=== PATIENT | female | born 1990 | race Caucasian/White ===

== ENCOUNTER → 2017-11-11 | Outpatient (CLI) | payer BC | END | disposition home or self-care (01) | LOC: LABWHC1 14:59 | PROVIDERS: ATTEND Obstetrics & Gynecology | DX: O03.9 Complete or unspecified spontaneous abortion without complication (principal) | CPT/HCPCS: 36415; 84702 ==

== ENCOUNTER 2018-08-28 22:40 | Outpatient (CLI) | payer BC ==
[2018-08-28] MEDS ORDERED: LACTATED RINGERS 1,000 ML IV SCH (23:45)
[2018-08-29] MEDS ORDERED: BUTORPHANOL 1 MG/ML 1 ML VIAL IV STA (01:03)
[2018-08-29 01:30] VITALS: RESP 18
[2018-08-29 03:16] VITALS: TEMP 96.8
[2018-08-29 03:21] VITALS: BP 135/80; PULSE 83
--- NOTE | 2018-08-29 13:37 | P.MSEPDOC ---
Presenting Problems - Arrival Data Date of Arrival on Unit: 08/28/18 Time of Arrival on Unit: 22:40 Mode of Transport: Wheelchair - Complaint OB-Reason for Admission/Chief Complaint: Possible Onset of Labor Comment: contractions every 3-5 min, getting more intense Medical History - Information : 4 Para: 2 Term: 1 : 1 Abortions: Spontaneous or Elective: 1 Number of Living Children: 2 - Gestational Age Gestational Age by MICK (wks/days): 36 Weeks and 0 Days Review of Systems - Review of Systems Constitutional: No problems Breast: No problems ENT: No problems Cardiovascular: No problems Respiratory: No problems Gastrointestinal: No problems Genitourinary: No problems Musculoskeletal: No problems Neurological: No problems Skin: No problems Vital Signs - Temperature Temperature: 96.8 F Temperature Source: Temporal Artery Scan - Pulse Right Brachial Pulse Rate: 83 Pulse Assessment Method: Automatic Cuff - Respirations Respiratory Rate: 18 Oxygen Delivery Method: Room Air - Blood Pressure Right Arm Blood Pressure: 135/80 Blood Pressure Mean: 98 Blood Pressure Source: Automatic Cuff Medical Screen Scoring (Pre) - Cervical Exam Dilation: 1-3 cm = 1 Effacement: More than 50% = 2 Membranes: Intact - Uterine Contractions Frequency: Scheduled / = 6 Duration: > 40 seconds = 2 Intensity: N/A - Maternal Vital Signs Maternal Temperature: N/A Maternal Blood Pressure: N/A Signs of Preeclampsia: N/A Maternal Respirations: N/A - Pain Assessment Pain Scale Used: Numeric (1 - 10) Pain Intensity: 7 Pain Management Goal: 4 Pain Description: *Acute, Cramping, Pressure, Tightness Pain Radiation Location: none Pain Frequency: Intermittent Pain Duration: 2 Pain Duration Units: Hours Pain Behavior: Facial Grimacing, Vocalization Pain Aggravating Factors: Contractions - Maternal Trauma Maternal Trauma: N/A - Assessment Baseline FHR: 140 NST: Reactive Position: N/A Station: N/A - Total Score Total Score (Pre): 11 - Level of Risk Level of Risk: High (10+) Physician Notification (Pre) - Physician Notified Physician Notified Date: 08/28/18 Physician Notified Time: 23:30 Physician/Practitioner Notifed:: Dr. Pritchett Spoke With: Dr. Pritchett New Order Received: Yes - Notification Comment Comment: treat contractions with IVF bolus, recheck cervix, if no change may discharge pt home Medical Screen Scoring (Post) - Cervical Exam Dilation: 1-3 cm = 1 Effacement: Exam Deferred Membranes: Intact - Uterine Contractions Frequency: < 36 weeks = 6 Duration: > 40 seconds = 2 Intensity: N/A - Maternal Vital Signs Maternal Temperature: N/A Maternal Blood Pressure: N/A Signs of Preeclampsia: N/A Maternal Respirations: N/A - Pain Assessment Pain Scale Used: Numeric (1 - 10) Pain Intensity: 6 Pain Management Goal: 4 Pain Description: Cramping, Pressure, Tightness Pain Radiation Location: none Pain Aggravating Factors: Contractions - Maternal Trauma Maternal Trauma: N/A - Assessment Heart Rate - NICHD Category: Category I (Normal) = 0 NST: Reactive Position: N/A Station: N/A - Total Score Total Score (Post): 9 - Post Treatment Level of Risk Post Treatment Level of Risk: Medium (6-9) Physician Notification (Post) - Physician Notified Physician Notified Date: 08/29/18 Physician Notified Time: 03:00 Physician/Practitioner Notified:: Dr. Pritchett Spoke With: Dr. Pritchett New Order Received: Yes - Notification Comment Comment: pt was given IVF, stadol dose x 1 given, cervical exam done x 3 with no change, Disposition - Disposition OB Disposition: Triage, Discharge to home, Written follow up instructions reviewed Discharge Date: 08/29/18 Discharge Time: 03:00 I agree with the RN Medical Screening Exam: Yes Risk & Benefit of care provided described in d/c instruction: Yes Diagnosis: FALSE LABOR BEFORE 37 COMPLETED WEEKS OF GEST, THIRD TRI
== END 2018-08-29 03:00 | disposition home or self-care (01) ==
LOC: FBPOP 22:40
PROVIDERS: ATTEND Obstetrics & Gynecology
DX: O47.03 False labor before 37 completed weeks of gestation, third trimester (principal); Z3A.36 36 weeks gestation of pregnancy
CPT/HCPCS: 59025; 99214; 96361; 96365; 96375; J0595

== ENCOUNTER 2018-09-01 03:00 | Inpatient (IN) | payer BC, OTHER ==
[2018-09-01] MEDS ORDERED: TERBUTALINE 1 MG/ML VIAL SQ PRN (05:43)
[2018-09-01] MEDS ORDERED: OXYTOCIN 10 UNIT/ML 1 ML VIAL IM PRN (05:43)
[2018-09-01] MEDS ORDERED: LIDOCAINE 0.5% (PF) 5 MG/ML (50 ML SDV) SQ PRN (05:43)
[2018-09-01] MEDS ORDERED: CARBOPROST TROMETHAMINE 250 MCG/ML 1 ML AMP IM PRN (05:43)
[2018-09-01] MEDS ORDERED: METHYLERGONOVINE 0.2 MG/ML 1 ML AMP IM PRN (05:43)
[2018-09-01] MEDS ORDERED: BUTORPHANOL 1 MG/ML 1 ML VIAL IV PRN (05:44)
[2018-09-01] MEDS ORDERED: LACTATED RINGERS 1,000 ML IV SCH (05:45)
[2018-09-01] MEDS ORDERED: LACTATED RINGERS 1,000 ML IV ONE (05:50)
[2018-09-01] MEDS ORDERED: CITRIC ACID-SODIUM CITRATE 15 ML CUP PO ONE (05:50)
[2018-09-01] MEDS ORDERED: ceFAZolin IN SWFI 2 GM/20 ML SYRINGE IVP ONE (05:50)
[2018-09-01 05:53] LABS: Basophils % (A) 0 %; Eosinophils # (A) 0.2 k/uL (0-0.7); Eosinophils % (A) 2 %; HCT 35.7 % (34.0-46.0); HGB 11.8 gm/dL (11.4-16.0); Lymphocytes # (A) 2.4 k/uL (1.0-4.8); Lymphocytes % (A) 19 %; MCH 30.5 pg (25.0-35.0); MCV 92.5 fL (80.0-100.0); Mean Platelet Volume 6.7; Monocytes # (A) 0.5 k/uL (0-1.0); Monocytes % (A) 4 %; Neutrophils # (A) 8.9 k/uL (1.3-7.7); Neutrophils % (A) 72 %; Platelet Count 293 k/uL (150-450); RBC 3.87 m/uL (3.80-5.40); WBC 12.3 k/uL (3.8-10.6)
--- NOTE | 2018-09-01 05:59 | P.HPOB ---
History of Present Illness H&P Date: 09/01/18 Chief Complaint: Contractions and previous . This patient is a pleasant 28-year-old 4 para 2 female estimated date of confinement 09/26/2018 estimated gestational age 36-3/7 weeks gestation who is admitted to the hospital with complaints of regular painful contractions. Patient was here early Saturday morning with similar complaints is 1 cm dilated having regular contractions. At that time she was given IV pain medications watch for a prolonged period of time and then sent home. Patient states that she's been anthony ever since and they have much worse this morning. Patient's cervix is 1-2 cm dilated she is having regular contractions. Patient' s had 2 previous section and has requested repeat and also requesting tubal ligation. This time patient's felt to be in active labor and therefore going to proceed with delivery. care is otherwise been uncomplicated. Review of Systems Gastrointestinal: Reports heartburn Genitourinary: Reports Menstruation: Reports amenorrhea Past Medical History Past Medical History: No Reported History Additional Past Medical History / Comment(s): Past obstetrical history: Patient had a 39 week section for failure to progress due to severe preeclampsia. She had a repeat section at 37 weeks second baby. History of Any Multi-Drug Resistant Organisms: None Reported Past Surgical History: Section Past Anesthesia/Blood Transfusion Reactions: No Reported Reaction Smoking Status: Never smoker Medications and Allergies Home Medications Medication Instructions Recorded Confirmed Type Ylm-Urcx-Svlbn Acid 1 tab PO HS 02/01/14 09/01/18 History [-U Capsule (formulary)] Allergies Allergy/AdvReac Type Severity Reaction Status Date / Time clindamycin Allergy Rash/Hives Verified 09/01/18 03:19 Exam Vital Signs Temp Pulse Resp BP Pulse Ox 09/01/18 04:19 16 09/01/18 04:02 96.4 F L 79 16 123/78 100 Intake and Output 08/31/18 08/31/18 09/01/18 14:59 22:59 06:59 Other: Weight 88.451 kg - OBG Physical Exam Abdomen: bowel sounds normal, no diffuse tenderness, no bruit present, no guarding noted, no hepatomegaly, no splenomegaly, no mass Vulva: both: normal Vagina: normal moisture, no discharge Cervix: Cervix is 1-2 cm dilated and -2 station Uterus: enlarged (Fundal height is 37 cm) Results blood work shows she is B+, rubella immune, RPR nonreactive,, HIV is nonreactive, hepatitis B was negative, ultrasounds have been normal, group B strep was negative. Assessment and Plan Assessment: This is a pleasant 28-year-old 4 para 2 female 36-3/7 weeks gestation with previous section 2 in active labor. Plan is repeat section and patient is also requesting permanent sterilization. Patient understands a tubal ligation is considered permanent however there is a failure rate of approximately 5 per thousand procedures done. She understands if she does become she is a 50% chance of a tubal or an ectopic . Patient also understands surgery itself has risks including risks of infection, bleeding, possible injury bowel, bladder, vessels, and/or other organs. All the patient's questions are answered and a written consent is obtained. (1) Previous section Current Visit: No Status: Acute Priority: High Code(s): Z98.89 - OTHER SPECIFIED POSTPROCEDURAL STATES * DO NOT USE * SNOMED Code(s): 321284531 (2) Active labor at term Current Visit: No Status: Acute Priority: High Code(s): WSQ9380 - SNOMED Code(s): 85638015 (3) Family planning Current Visit: Yes Status: Acute Code(s): Z30.09 - ENCOUNTER FOR OTH GENERAL CNSL AND ADVICE ON CONTRACEPTION SNOMED Code(s): 808955109
[2018-09-01 06:20] VITALS: BMI 34.5
[2018-09-01] MEDS: LACTATED RINGERS 1,000 ML IV SCH ×4 (07:03→23:55)
[2018-09-01] MEDS ORDERED: NALBUPHINE 10 MG/ML VIAL (10ML MDV) ONE (07:42)
[2018-09-01] MEDS ORDERED: ONDANSETRON 4 MG/2 ML VIAL ONE (07:42)
[2018-09-01] MEDS ORDERED: MORPHINE SULFATE (PF) 0.3 MG/0.3 ML SYR ONE (07:42)
[2018-09-01] MEDS ORDERED: KETOROLAC 30 MG/ML 1 ML VIAL ONE (07:42)
[2018-09-01] MEDS ORDERED: OXYTOCIN 10 UNIT/ML 1 ML VIAL ONE (07:42)
--- NOTE | 2018-09-01 08:35 | P.OP ---
Date of Procedure: 09/01/18 Preoperative Diagnosis: #1: 36-4/7 week . #2: Active labor. #3: Previous section 2 desires repeat. #4: Multi parity desires permanent sterilization Postoperative Diagnosis: Same Procedure(s) Performed: Repeat low transverse section and bilateral partial salpingectomy Anesthesia: spinal Surgeon: Tim Rolon Corporate Affairs Manager #1: Maureen Shen Estimated Blood Loss (ml): 800 Pathology: other (Placenta and bilateral fallopian tube segments) Condition: stable Disposition: floor Indications for Procedure: Please see dictated H&P for intimate details of this patient's admission. Brief summary this is a pleasant 28-year-old 3 para 2 female 36-4/7 weeks gestation admitted to labor and delivery with persistent painful contractions and cervical change consistent with early labor patient's had 2 previous section desires repeat. Patient's also requesting permanent sterilization. Patient I discussed the surgery and risks including risks of infection, bleeding, possible injury bowel bladder, vessels, and/or other organs. Patient also understands that a tubal ligation is considered permanent. All the patient's questions are answered written consent is obtained. Operative Findings: The vigorous viable female infant Apgars 9 and 10 delivery time is 0804 hrs. Description of Procedure: This patient has a Cardona catheter placed to straight drain. She subsequently taken to the operating room where she sat up and spinal anesthetic is administered without incident. With an adequate level of anesthesia she has abdominal prep and drape. Scalpels and taken Pfannenstiel skin incision is then made. A second scalpel is taken of the fascia and the fascia scored with a knife. Fascial incision extended bilaterally using the Cancino scissors. Fascia is then dissected off the rectus muscles sharply. Rectus muscles are the peritoneum identified and entered sharply. Bladder blade is placed and bladder peritoneum was taken off the lower uterine segment. Scalpels and taken low transverse uterine incision is then made for loss of clear fluid with a blunt hemostat. Uterine incision extended bluntly and the infant's head was guided through the incision with fundal pressure mouth and nares are bulb suctioned there is no evidence of a nuchal cord. We then have deliver the rest this 's body. This is a vigorous viable female infant Apgars are 9 and 10 delivery time is 0804 hrs. after delivery of the the umbilical cord is doubly clamped and cut it appears to be trivascular. The placenta is manually extracted intact. Uterus is externalized uterine incision demarcated with Portillo clamps and then closed using 0 Vicryl running locked fashion 2 layers excellent hemostasis is noted then turned my attention a left fallopian tube and approximately 4 cm from the cornual insertion a small window made to the mesial salpinx. Bovie cautery. 2-0 silk is then used to doubly ligate a 2 cm knuckle the tube which is then excised and handed off to pathology. Cauterization done of the tubal ends similar technique on the right side with similar results. With this done excess fluid is removed from the abdomen and pelvis uterus placed back into the abdomen and both fallopian tubes and the uterine incision are inspected and found to be hemostatic. The parietal peritoneum was then closed using 0 Vicryl running fashion. Rectus muscles reapproximated in 0 Vicryl interrupted fashion. Fascia is then closed using 0 PDS. Fascial incision is intact and hemostatic. Subcutaneous tissues and closed using a 3-0 Vicryl. Skin is and closed using selin. There are no complications. All counts correct 3. Patient and baby are taken to the birthing suite in satisfactory condition.
[2018-09-01] MEDS ORDERED: LANOLIN CREAM 5 GM TUBE TOPICAL PRN (09:15)
[2018-09-01] MEDS ORDERED: OXYTOCIN 20 UNITS/1000 ML NS 1,000 ML IV SCH (09:15)
[2018-09-01] MEDS ORDERED: SIMETHICONE 80 MG CHEWABLE PO PRN (09:15)
[2018-09-01] MEDS ORDERED: diphenhydrAMINE 50 MG/ML 1 ML VIAL IVP PRN (09:15)
[2018-09-01] MEDS ORDERED: ACETAMINOPHEN TAB 325 MG TAB PO PRN (09:15)
[2018-09-01] MEDS ORDERED: IBUPROFEN 600 MG TAB PO PRN (09:15)
[2018-09-01] MEDS ORDERED: ZOLPIDEM 5 MG TAB PO PRN (09:15)
[2018-09-01] MEDS ORDERED: ONDANSETRON 4 MG/2 ML VIAL IVP PRN (09:15)
[2018-09-01] MEDS ORDERED: NALOXONE 0.4 MG/ML 1 ML VIAL IV PRN (09:15)
[2018-09-01] MEDS ORDERED: METOCLOPRAMIDE 5 MG/ML 2 ML VIAL IVP PRN (09:15)
[2018-09-01] MEDS ORDERED: diphenhydrAMINE 25 MG CAP PO PRN (09:15)
--- NOTE | 2018-09-01 11:52 | P.MSEPDOC ---
Presenting Problems - Arrival Data Date of Arrival on Unit: 09/01/18 Time of Arrival on Unit: 06:30 Mode of Transport: Wheelchair - Complaint OB-Reason for Admission/Chief Complaint: Possible Onset of Labor Comment: c/o contractions every 2-4 mins starting around 2100 yesterday evening. Medical History - Information : 2 Para: 2 Term: 1 : 1 Abortions: Spontaneous or Elective: 0 Number of Living Children: 2 - Gestational Age Gestational Age by MICK (wks/days): 35 Weeks and 4 Days Review of Systems - Review of Systems Constitutional: No problems Breast: No problems ENT: No problems Cardiovascular: No problems Respiratory: No problems Gastrointestinal: No problems Genitourinary: No problems Musculoskeletal: No problems Neurological: No problems Skin: No problems Vital Signs - Temperature Temperature: 97.2 F Temperature Source: Axillary - Pulse Left Pulse Rate: 75 Pulse Assessment Method: Automatic Cuff - Respirations Respiratory Rate: 16 Oxygen Delivery Method: Room Air O2 Sat by Pulse Oximetry: 99 - Blood Pressure Right Arm Blood Pressure: 126/78 Blood Pressure Mean: 94 Blood Pressure Source: Automatic Cuff Medical Screen Scoring (Pre) - Cervical Exam Dilation: 1-3 cm = 1 Effacement: Exam Deferred Membranes: Intact - Uterine Contractions Frequency: > 5 minutes apart = 1 Duration: > 40 seconds = 2 Intensity: N/A - Maternal Vital Signs Maternal Temperature: N/A Maternal Blood Pressure: N/A Signs of Preeclampsia: N/A Maternal Respirations: N/A - Pain Assessment Pain Location and Character: Abdomen Pain Scale Used: Numeric (1 - 10) Pain Intensity: 7 Pain Management Goal: 0 Pain Description: *Acute, Tightness Pain Frequency: Intermittent Pain Duration Units: Minutes Pain Behavior: Vocalization Pain Aggravating Factors: Contractions Non-Pharmacological Interventions: Darkened Room, Distraction, Position/ Reposition, Relaxation Technique - Maternal Trauma Maternal Trauma: N/A - Assessment Baseline FHR: 135 Heart Rate - NICHD Category: Category I (Normal) = 0 NST: Reactive Position: N/A Station: N/A - Total Score Total Score (Pre): 4 - Level of Risk Level of Risk: Low (0-5) Physician Notification (Pre) - Physician Notified Physician Notified Date: 09/01/18 Physician Notified Time: 04:02 Physician/Practitioner Notifed:: Dr. Rolon Spoke With: Dr. Rolon New Order Received: Yes - Notification Comment Comment: Orders to start IV, keep Pt NPO, and physician will be in at 0615 to recheck and assess pt. Medical Screen Scoring (Post) - Cervical Exam Dilation: 1-3 cm = 1 Effacement: Exam Deferred Membranes: Intact - Uterine Contractions Frequency: N/A Duration: N/A Intensity: N/A - Maternal Vital Signs Maternal Temperature: N/A Maternal Blood Pressure: N/A Signs of Preeclampsia: N/A Maternal Respirations: N/A - Pain Assessment Pain Location and Character: Abdomen Pain Scale Used: Numeric (1 - 10) Pain Intensity: 7 Pain Management Goal: 0 Pain Description: *Acute, Tightness Pain Frequency: Intermittent Pain Duration Units: Minutes Pain Behavior: Vocalization - Maternal Trauma Maternal Trauma: N/A - Assessment Heart Rate: 135 Heart Rate - NICHD Category: Category I (Normal) = 0 - Total Score Total Score (Post): 1 - Post Treatment Level of Risk Post Treatment Level of Risk: Low (0-5) Physician Notification (Post) - Physician Notified Physician Notified Date: 09/01/18 Physician Notified Time: 05:45 Physician/Practitioner Notified:: Dr. Rolon Spoke With: Dr. Rolon - Notification Comment Comment: Dr. rolon at bedside for vag exam and assessment. Orders for admission at this time. Disposition - Disposition OB Disposition: Admit Discharge Date: 09/01/18 Discharge Time: 05:45 I agree with the RN Medical Screening Exam: Yes Risk & Benefit of care provided described in d/c instruction: Yes Diagnosis: LABOR W DELIVERY, UNSP TRIMESTER, UNSP
[2018-09-01] MEDS: SENNOSIDES-DOCUSATE SODIUM 1 EACH TAB PO SCH ×2 (13:31→23:55)
[2018-09-01] MEDS: KETOROLAC 30 MG/ML 1 ML VIAL IVP PRN ×2 (14:08→22:12)
[2018-09-02] MEDS: LACTATED RINGERS 1,000 ML IV SCH (02:23)
[2018-09-02] MEDS: KETOROLAC 30 MG/ML 1 ML VIAL IVP PRN ×3 (04:16→17:09)
--- NOTE | 2018-09-02 05:50 | P.PN ---
Progress Note - Text Progress Note Date: 09/02/18 28 yo female status post . Post-op day #1. Patient received intrathecal Duramorph. Patient was seen today, sitting up in bed no complaints, pain VAS score 0/10, no headache, no itching, no nausea and vomiting. Assessment and plan: Doing well in general no complications from anesthesia.
--- NOTE | 2018-09-02 06:34 | P.PNOBGPC ---
Subjective - Subjective Patient reports: Reports appetite normal, Reports voiding normally, Reports pain well controlled, Reports ambulating normally : doing well Objective - Vital Signs Latest vital signs: Vital Signs Temp Pulse Pulse Resp BP Pulse Ox 09/02/18 04:00 97.5 F L 73 16 112/62 100 09/02/18 00:00 97.7 F 78 16 124/73 100 09/01/18 19:56 97.7 F 86 16 123/80 100 09/01/18 16:00 97.9 F 78 18 119/67 98 09/01/18 12:01 75 16 125/76 09/01/18 11:57 97.9 F 101 H 18 133/85 98 09/01/18 11:52 97.2 F L 75 16 126/78 99 09/01/18 10:34 97.2 F L 75 16 126/78 99 09/01/18 10:04 80 18 124/73 98 09/01/18 09:34 97.1 F L 75 16 135/71 99 09/01/18 09:19 78 16 126/70 97 09/01/18 09:04 76 16 113/67 97 09/01/18 08:49 82 16 108/56 96 09/01/18 08:34 96.6 F L 79 16 114/58 98 Intake and Output 09/01/18 09/01/18 09/02/18 14:59 22:59 06:59 Intake Total 1200 Output Total 6786 803 3507 Balance -175 -300 -1000 Intake: IV 1200 Output: Urine 440 592 7144 Uretheral (Cardona) 300 Estimated Blood Loss 800 Other: Voiding Method Indwelling Catheter Toilet - Exam Lungs: bilateral: normal Chest: Normal S1, Normal S2 Extremities: Present: normal Abdomen: Present: normal appearance, soft. Absent: distention, tenderness Incision: Present: normal, dry, intact Uterus: Present: normal, firm Assessment and Plan Assessment: Post operative day #1. Patient is resting without complaints. Vital signs are stable she is afebrile. Her incision is intact and dry. Patient's tolerating some solid food and ambulating without difficulty. Patient is urinating without difficulty. Plan today is to continue routine postoperative care. Allow the patient to shower and check a CBC. Most likely will go home tomorrow. (1) Previous section Current Visit: No Status: Acute Priority: High Code(s): Z98.89 - OTHER SPECIFIED POSTPROCEDURAL STATES * DO NOT USE * SNOMED Code(s): 337365545 (2) Active labor at term Current Visit: No Status: Acute Priority: High Code(s): DCH5497 - SNOMED Code(s): 61554714 (3) Family planning Current Visit: Yes Status: Acute Code(s): Z30.09 - ENCOUNTER FOR OTH GENERAL CNSL AND ADVICE ON CONTRACEPTION SNOMED Code(s): 565289545
[2018-09-02 07:21] LABS: Basophils % (A) 0 %; Eosinophils # (A) 0.3 k/uL (0-0.7); Eosinophils % (A) 2 %; HCT 32.6 % (34.0-46.0); HGB 11.1 gm/dL (11.4-16.0); Lymphocytes # (A) 2.1 k/uL (1.0-4.8); Lymphocytes % (A) 14 %; MCH 31.4 pg (25.0-35.0); MCHC 34.1 g/dL (31.0-37.0); MCV 92.1 fL (80.0-100.0); Mean Platelet Volume 6.8; Monocytes # (A) 0.8 k/uL (0-1.0); Monocytes % (A) 5 %; Neutrophils # (A) 11.5 k/uL (1.3-7.7); Neutrophils % (A) 77 %; Platelet Count 266 k/uL (150-450); RBC 3.54 m/uL (3.80-5.40); WBC 14.9 k/uL (3.8-10.6)
[2018-09-02] MEDS: SENNOSIDES-DOCUSATE SODIUM 1 EACH TAB PO SCH ×2 (09:45→20:04)
[2018-09-02] MEDS: HYDROcodone/APAP 5-325MG 1 EACH TAB PO PRN ×2 (15:15→20:03)
[2018-09-02 16:46] VITALS: RESP 16
--- NOTE | 2018-09-03 05:14 | P.PNOBGPC ---
Subjective - Subjective Patient reports: Reports appetite normal, Reports voiding normally, Reports pain well controlled, Reports ambulating normally : doing well Objective - Vital Signs Latest vital signs: Vital Signs Temp Pulse Resp BP 09/02/18 16:00 98.2 F 80 16 119/74 09/02/18 08:00 97.8 F 84 14 117/68 Intake and Output 09/02/18 09/02/18 09/03/18 14:59 22:59 06:59 Output Total 900 Balance -900 Output: Urine 900 - Exam Lungs: bilateral: normal Chest: Normal S1, Normal S2 Extremities: Present: normal Abdomen: Present: normal appearance, soft. Absent: distention, tenderness Incision: Present: normal, dry, intact Uterus: Present: normal, firm - Labs Labs: Abnormal Lab Results - Last 24 Hours (Table) 09/02/18 Range/Units 06:53 WBC 14.9 H (3.8-10.6) k/uL RBC 3.54 L (3.80-5.40) m/uL Hgb 11.1 L (11.4-16.0) gm/dL Hct 32.6 L (34.0-46.0) % Neutrophils # 11.5 H (1.3-7.7) k/uL Assessment and Plan Assessment: Post operative day #2. Patient is resting without complaints. She wishes to go home. Vital signs are stable she's afebrile. Uterus is firm nontender she' s having normal lochia. CBC yesterday was normal. Patient is tolerating regular diet, ambulating, urinating without difficulty. Plan today is to continue routine postoperative care discharge home later today. (1) Previous section Current Visit: No Status: Acute Priority: High Code(s): Z98.89 - OTHER SPECIFIED POSTPROCEDURAL STATES * DO NOT USE * SNOMED Code(s): 445927258 (2) Active labor at term Current Visit: No Status: Acute Priority: High Code(s): SCY9179 - SNOMED Code(s): 49255052 (3) Family planning Current Visit: Yes Status: Acute Code(s): Z30.09 - ENCOUNTER FOR OTH GENERAL CNSL AND ADVICE ON CONTRACEPTION SNOMED Code(s): 562611248
--- NOTE | 2018-09-03 05:24 | P.DS ---
Providers Date of admission: 09/01/18 05:44 Expected date of discharge: 09/03/18 Attending physician: Tim Rolon Primary care physician: Tim Rolon - Discharge Diagnosis(es) (1) Previous section Current Visit: No Status: Acute Priority: High (2) Active labor at term Current Visit: No Status: Acute Priority: High (3) Family planning Current Visit: Yes Status: Acute Hospital Course: Please see dictated H&P of this patient's admission. Brief summary this is a 28 -year-old 3 para 2 female 36 1/2 weeks gestation who is admitted to labor and delivery in active labor. Patient's had previous section therefore had repeat section and also requested tubal ligation. Postoperative patient did well and on postoperative 2 she felt be stable for discharge home follow up with me in 1 week. Procedures: Repeat low transverse section and bilateral partial salpingectomy Patient Condition at Discharge: Good Plan - Discharge Summary New Discharge Prescriptions: No Action Vbn-Jqmc-Qlngv Acid [-U Capsule (formulary)] 1 tab PO HS Discharge Medication List Qgm-Jupo-Peuwr Acid [-U Capsule (formulary)] 1 tab PO HS [History]
[2018-09-03] MEDS: SENNOSIDES-DOCUSATE SODIUM 1 EACH TAB PO SCH (10:01)
[2018-09-03] MEDS: HYDROcodone/APAP 5-325MG 1 EACH TAB PO PRN ×2 (10:01→10:05)
[2018-09-03 11:12] VITALS: BP 120/67; PULSE 95; TEMP 98.4
== END 2018-09-03 10:43 | disposition home or self-care (01) | DRG 785 ==
LOC: FBPOP 03:00 → 4FBP 05:44
PROVIDERS: ADMIT Obstetrics & Gynecology; ATTEND Obstetrics & Gynecology
PROC: 0UB70ZZ Excision of Bilateral Fallopian Tubes, Open Approach (ICD-10-PCS; 2018-09-01)
PROC: 10D00Z1 Extraction of Products of Conception, Low, Open Approach (ICD-10-PCS; principal; 2018-09-01 08:00)
DX: O34.211 Maternal care for low transverse scar from previous cesarean delivery (principal); O99.62 Diseases of the digestive system complicating childbirth; R12 Heartburn; Z30.2 Encounter for sterilization; Z37.0 Single live birth; Z3A.36 36 weeks gestation of pregnancy; Z88.1 Allergy status to other antibiotic agents
CPT/HCPCS: 59025; 85025; 86850; 86900; 86901; 88302; 88307; 88312; 96360; 99213

== ENCOUNTER 2018-09-12 18:28 | Inpatient (IN) | payer OTHER ==
[2018-09-12] MEDS ORDERED: LABETALOL SYRINGE 5 MG/ML IVP STA (19:11)
[2018-09-12] MEDS ORDERED: LACTATED RINGERS 1,000 ML IV ONE (19:12)
[2018-09-12] MEDS ORDERED: MAGNESIUM SULFATE-D5W PMX 1 GM in DEXTROSE/WATER 1 100ML.BAG IVPB SCH (19:15)
[2018-09-12] MEDS ORDERED: SODIUM CHLORIDE 0.9% 500 ML 500 ML IV SCH (19:15)
--- NOTE | 2018-09-12 19:16 | ED ---
Female Urogenital HPI - General Chief complaint: Vaginal Bleeding Stated complaint: Vaginal bleeding Time Seen by Provider: 09/12/18 18:55 Source: patient, EMS, RN notes reviewed, old records reviewed Mode of arrival: EMS Limitations: no limitations - History of Present Illness Initial comments: Patient is a 28-year-old female, 1 week post after by Dr. Falcon. She presents emergency Department today with complaints of a headache with blurry vision. She reports that she has a headache behind her right eye. She states that she felt like her vision was blurry and "underwater. " She states that she's also had a history of swelling her lower extremities over the past week but seems to diminish over the past few days. Patient states that when she had a headache and blurry vision today to set down and rested. Then when she was standing up and picking up toys she felt a large amount of vaginal bleeding. She's had no significant bleeding from her surgery since that time. Patient states that she has had eclampsia with her first baby. She states that her headache has somewhat diminished at this time after she received Motrin. Patient states that she has also had some lower abdominal tenderness and cramping. She arrived to emergency department with a fever 100.1. Last Menstrual Period: 11/24/17 - Related Data Home Medications Medication Instructions Recorded Confirmed Ibuprofen [Motrin Ib] 600 mg PO Q6H PRN 09/12/18 09/12/18 Allergies Allergy/AdvReac Type Severity Reaction Status Date / Time clindamycin Allergy Rash/Hives Verified 09/12/18 18:49 Review of Systems ROS Statement: Those systems with pertinent positive or pertinent negative responses have been documented in the HPI. ROS Other: All systems not noted in ROS Statement are negative. Past Medical History Past Medical History: No Reported History Additional Past Medical History / Comment(s): Past obstetrical history: Patient had a 39 week section for failure to progress due to severe preeclampsia. She had a repeat section at 37 weeks second baby. History of Any Multi-Drug Resistant Organisms: None Reported Past Surgical History: Section Past Anesthesia/Blood Transfusion Reactions: No Reported Reaction Past Psychological History: Anxiety, Depression Smoking Status: Never smoker Past Alcohol Use History: None Reported Past Drug Use History: None Reported - Past Family History Mother Family Medical History: Diabetes Mellitus General Exam - General Exam Comments Initial Comments: His is a 28-year-old female. Alert and oriented 3. Patient appears in no acute distress. Limitations: no limitations General appearance: alert, in no apparent distress Head exam: Present: atraumatic, normocephalic, normal inspection Eye exam: Present: normal appearance, PERRL, EOMI. Absent: scleral icterus, conjunctival injection, periorbital swelling ENT exam: Present: normal exam, mucous membranes moist Neck exam: Present: normal inspection. Absent: tenderness, meningismus, lymphadenopathy Respiratory exam: Present: normal lung sounds bilaterally. Absent: respiratory distress, wheezes, rales, rhonchi, stridor Cardiovascular Exam: Present: regular rate, normal rhythm, normal heart sounds. Absent: systolic murmur, diastolic murmur, rubs, gallop, clicks GI/Abdominal exam: Present: soft, tenderness (Suprapubic and umbilical tenderness. Well-appearing incision site at the suprapubic line. No erythema or drainage.), normal bowel sounds. Absent: distended, guarding, rebound, rigid Extremities exam: Present: normal inspection, full ROM, normal capillary refill. Absent: tenderness, pedal edema, joint swelling, calf tenderness Back exam: Present: normal inspection Neurological exam: Present: alert, oriented X3, CN II-XII intact Psychiatric exam: Present: normal affect, normal mood Course Vital Signs 09/12/18 09/12/18 09/12/18 18:30 19:31 19:50 Temperature 100.1 F H Pulse Rate 67 62 66 Respiratory 16 16 Rate Blood Pressure 151/89 166/94 144/92 O2 Sat by Pulse 99 100 99 Oximetry 09/12/18 09/12/18 09/12/18 20:00 20:15 21:17 Temperature Pulse Rate 69 70 Respiratory 16 18 Rate Blood Pressure 131/82 131/94 124/87 O2 Sat by Pulse 96 95 Oximetry 09/12/18 21:30 Temperature 98.3 F Pulse Rate 77 Respiratory 16 Rate Blood Pressure 124/79 O2 Sat by Pulse 99 Oximetry - Reevaluation(s) Reevaluation #1: 09/12/18 21:59 is reevaluated. She reports her headache is diminished. She states that she's had no further significant vaginal bleeding that she's been resting comfortable in bed. Medical Decision Making - Medical Decision Making Patient is a 28-year-old female 1 weeks after . She presents emergency room today with complaints of headache and blurry vision. She also has had some heavy vaginal bleeding. Patient was started on a frequency protocol given for December 4 units of magnesium and 20 mg of IV push little. Her blood pressure was 160/110. Patient responded well to the medications. She started lactated Ringer's. CT of the brain was completed. In this is negative for any acute process. Patient does feel somewhat better from her headache at this time. Patient's incision site in her abdomen appears well. She does complain of some generalized abdominal discomfort. Dr. AKBAR discussed the case with Dr. Shen who also examined the Patient. Patient will be admitted at this time under Dr. Shen for eclampsia. Urine culture and blood culture were obtained to to the low-grade temperature 100.1. - Lab Data Result diagrams: 09/12/18 18:45 09/12/18 18:45 Lab Results 09/12/18 09/12/18 09/12/18 Range/Units 18:45 18:45 18:45 WBC 8.4 (3.8-10.6) k/uL RBC 4.13 (3.80-5.40) m/uL Hgb 12.2 (11.4-16.0) gm/dL Hct 37.5 (34.0-46.0) % MCV 90.8 (80.0-100.0) fL MCH 29.4 (25.0-35.0) pg MCHC 32.4 (31.0-37.0) g/dL RDW 12.1 (11.5-15.5) % Plt Count 507 H (150-450) k/uL Neutrophils % 63 % Lymphocytes % 25 % Monocytes % 5 % Eosinophils % 4 % Basophils % 0 % Neutrophils # 5.3 (1.3-7.7) k/uL Lymphocytes # 2.1 (1.0-4.8) k/uL Monocytes # 0.4 (0-1.0) k/uL Eosinophils # 0.3 (0-0.7) k/uL Basophils # 0.0 (0-0.2) k/uL PT (9.0-12.0) sec INR (<1.2) APTT (22.0-30.0) sec Sodium 141 (137-145) mmol/L Potassium 4.1 (3.5-5.1) mmol/L Chloride 108 H (98-107) mmol/L Carbon Dioxide 23 (22-30) mmol/L Anion Gap 10 mmol/L BUN 15 (7-17) mg/dL Creatinine 0.74 (0.52-1.04) mg/dL Est GFR (CKD-EPI)AfAm >90 (>60 ml/min/1.73 sqM) Est GFR (CKD-EPI)NonAf >90 (>60 ml/min/1.73 sqM) Glucose 91 (74-99) mg/dL Plasma Lactic Acid Raffi 1.5 (0.7-2.0) mmol/L Uric Acid 7.7 H (3.7-7.4) mg/dL Calcium 9.2 (8.4-10.2) mg/dL Magnesium 2.0 (1.6-2.3) mg/dL Total Bilirubin 0.2 (0.2-1.3) mg/dL AST 20 (14-36) U/L ALT 26 (9-52) U/L Alkaline Phosphatase 87 (38-126) U/L Lactate Dehydrogenase 566 (313-618) U/L Total Protein 6.5 (6.3-8.2) g/dL Albumin 3.6 (3.5-5.0) g/dL Urine Color Urine Appearance (Clear) Urine pH (5.0-8.0) Ur Specific [place] (1.001-1.035) Urine Protein (Negative) Urine Glucose (UA) (Negative) Urine Ketones (Negative) Urine Blood (Negative) Urine Nitrite (Negative) Urine Bilirubin (Negative) Urine Urobilinogen (<2.0) mg/dL Ur Leukocyte Esterase (Negative) Urine RBC (0-5) /hpf Urine WBC (0-5) /hpf Ur Squamous Epith Cells (0-4) /hpf Urine Mucus (None) /hpf 09/12/18 09/12/18 Range/Units 18:45 20:33 WBC (3.8-10.6) k/uL RBC (3.80-5.40) m/uL Hgb (11.4-16.0) gm/dL Hct (34.0-46.0) % MCV (80.0-100.0) fL MCH (25.0-35.0) pg MCHC (31.0-37.0) g/dL RDW (11.5-15.5) % Plt Count (150-450) k/uL Neutrophils % % Lymphocytes % % Monocytes % % Eosinophils % % Basophils % % Neutrophils # (1.3-7.7) k/uL Lymphocytes # (1.0-4.8) k/uL Monocytes # (0-1.0) k/uL Eosinophils # (0-0.7) k/uL Basophils # (0-0.2) k/uL PT 10.4 (9.0-12.0) sec INR 1.0 (<1.2) APTT 24.3 (22.0-30.0) sec Sodium (137-145) mmol/L Potassium (3.5-5.1) mmol/L Chloride (98-107) mmol/L Carbon Dioxide (22-30) mmol/L Anion Gap mmol/L BUN (7-17) mg/dL Creatinine (0.52-1.04) mg/dL Est GFR (CKD-EPI)AfAm (>60 ml/min/1.73 sqM) Est GFR (CKD-EPI)NonAf (>60 ml/min/1.73 sqM) Glucose (74-99) mg/dL Plasma Lactic Acid Raffi (0.7-2.0) mmol/L Uric Acid (3.7-7.4) mg/dL Calcium (8.4-10.2) mg/dL Magnesium (1.6-2.3) mg/dL Total Bilirubin (0.2-1.3) mg/dL AST (14-36) U/L ALT (9-52) U/L Alkaline Phosphatase (38-126) U/L Lactate Dehydrogenase (313-618) U/L Total Protein (6.3-8.2) g/dL Albumin (3.5-5.0) g/dL Urine Color Light Yellow Urine Appearance Clear (Clear) Urine pH 6.5 (5.0-8.0) Ur Specific [place] 1.008 (1.001-1.035) Urine Protein Trace H (Negative) Urine Glucose (UA) Negative (Negative) Urine Ketones Negative (Negative) Urine Blood Large H (Negative) Urine Nitrite Negative (Negative) Urine Bilirubin Negative (Negative) Urine Urobilinogen <2.0 (<2.0) mg/dL Ur Leukocyte Esterase Moderate H (Negative) Urine RBC 45 H (0-5) /hpf Urine WBC 23 H (0-5) /hpf Ur Squamous Epith Cells <1 (0-4) /hpf Urine Mucus Rare H (None) /hpf - Radiology Data Radiology results: report reviewed Normal CT of the brain. Disposition Clinical Impression: Previous section, Eclampsia Disposition: ADMITTED IP TO THIS HOSP Condition: Stable Is patient prescribed a controlled substance at d/c from ED?: No Referrals: None,Stated [Primary Care Provider] - 1-2 days Time of Disposition: 22:01
[2018-09-12] MEDS ORDERED: MAGNESIUM SULFATE-WATER PMX 4 GM in WATER FOR INJECTION 1 50ML.BAG IVPB STA (19:19)
[2018-09-12 19:37] LABS: Basophils % (A) 0 %; Eosinophils # (A) 0.3 k/uL (0-0.7); Eosinophils % (A) 4 %; HCT 37.5 % (34.0-46.0); HGB 12.2 gm/dL (11.4-16.0); Lymphocytes # (A) 2.1 k/uL (1.0-4.8); Lymphocytes % (A) 25 %; MCH 29.4 pg (25.0-35.0); MCHC 32.4 g/dL (31.0-37.0); MCV 90.8 fL (80.0-100.0); Mean Platelet Volume 6.1; Monocytes # (A) 0.4 k/uL (0-1.0); Monocytes % (A) 5 %; Neutrophils # (A) 5.3 k/uL (1.3-7.7); Neutrophils % (A) 63 %; Platelet Count 507 k/uL (150-450); RBC 4.13 m/uL (3.80-5.40); RDW 12.1 % (11.5-15.5); WBC 8.4 k/uL (3.8-10.6)
[2018-09-12 19:45] LABS: Partial Thromboplastin Time 24.3 sec (22.0-30.0); Prothrombin Time 10.4 sec (9.0-12.0)
[2018-09-12 19:48] LABS: ALT 26 U/L (9-52); AST 20 U/L (14-36); Albumin 3.6 g/dL (3.5-5.0); Alkaline Phosphatase 87 U/L (38-126); Anion Gap 10 mmol/L; Blood Urea Nitrogen 15 mg/dL (7-17); Calcium 9.2 mg/dL (8.4-10.2); Carbon Dioxide 23 mmol/L (22-30); Chloride 108 mmol/L (98-107); Glucose 91 mg/dL (74-99); LDH 566 U/L (313-618); Potassium 4.1 mmol/L (3.5-5.1); Sodium 141 mmol/L (137-145); Total Bilirubin 0.2 mg/dL (0.2-1.3); Total Protein 6.5 g/dL (6.3-8.2); Uric Acid 7.7 mg/dL (3.7-7.4)
[2018-09-12] MEDS ORDERED: MAGNESIUM SULFATE-WATER PMX 20 GM in WATER FOR INJECTION 1 500ML.BAG IV SCH ×2 (19:50→20:00)
[2018-09-12 20:50] LABS: Appearance,Urine Clear (Clear); Bilirubin,Urine Negative (Negative); Blood,Urine Large (Negative); Color,Urine Light Yellow; Glucose,Urine (UA) Negative (Negative); Ketones,Urine Negative (Negative); Leukocyte Esterase,Urine Moderate (Negative); Mucus,Urine Rare /hpf; Nitrite,Urine Negative (Negative); PH, Urine 6.5 (5.0-8.0); Protein,Urine Trace (Negative); RBC,Urine 45 /hpf (0-5); Specific Gravity,Urine 1.008 (1.001-1.035); Squamous Epithelial Cell,Urine <1 /hpf (0-4); Urobilinogen,Urine <2.0 mg/dL (<2.0); WBC,Urine 23 /hpf (0-5)
--- NOTE | 2018-09-12 20:55 | CT ---
EXAMINATION TYPE: CT brain wo con DATE OF EXAM: 09/12/2018 COMPARISON: None HISTORY: headaches, blurred vision, near syncopal episode post CT DLP: 1082.4 mGycm. Automated Exposure Control for Dose Reduction was Utilized. TECHNIQUE: CT scan of the head is performed without contrast. FINDINGS: Ventricles and sulci appear normal. There is no mass effect nor midline shift. There is no sign of intracranial hemorrhage. The calvarium is intact. IMPRESSION: Normal head CT scan.
[2018-09-12] MEDS ORDERED: NALOXONE 0.4 MG/ML 1 ML VIAL IV PRN (22:02)
--- NOTE | 2018-09-12 22:32 | P.HPOB ---
History of Present Illness H&P Date: 09/12/18 Chief Complaint: post pre-eclampsia 28 year old presents 11 days post-op from with elevated blood pressure, headache and some vaginal bleeding. HEr vision started getting blurry and then her head started to hurt. She then had some heavy vaginal bleeding that brought her to the ER. Upon presentation to ER her BP was 160's/100's. I instructed them to give labetalol IV and start mag sulfate. Her BP is now 120' s over 70's. Review of Systems All systems: negative Constitutional: Denies chills, Denies fever Eyes: denies blurred vision, denies pain Ears, nose, mouth and throat: Reports headache, Denies sore throat Cardiovascular: Denies chest pain, Denies shortness of breath Respiratory: Denies cough Gastrointestinal: Denies abdominal pain, Denies diarrhea, Denies nausea, Denies vomiting Genitourinary: Denies dysuria, Denies hematuria Musculoskeletal: Denies myalgias Integumentary: Denies pruritus, Denies rash Neurological: Denies numbness, Denies weakness Psychiatric: Denies anxiety, Denies depression Endocrine: Denies fatigue, Denies weight change Past Medical History Past Medical History: No Reported History Additional Past Medical History / Comment(s): Past obstetrical history: Patient had a 39 week section for failure to progress due to severe preeclampsia. She has had 3 other c-sections since. She did not have HTN with this and had care with Dr Rolon. History of Any Multi-Drug Resistant Organisms: None Reported Past Surgical History: Section Past Anesthesia/Blood Transfusion Reactions: No Reported Reaction Past Psychological History: Anxiety, Depression Smoking Status: Never smoker Past Alcohol Use History: None Reported Past Drug Use History: None Reported - Past Family History Mother Family Medical History: Diabetes Mellitus Medications and Allergies Home Medications Medication Instructions Recorded Confirmed Type Ibuprofen [Motrin Ib] 600 mg PO Q6H PRN 09/12/18 09/12/18 History Allergies Allergy/AdvReac Type Severity Reaction Status Date / Time clindamycin Allergy Rash/Hives Verified 09/12/18 18:49 Exam Osteopathic Statement: *. No significant issues noted on an osteopathic structural exam other than those noted in the History and Physical/Consult. Vital Signs Temp Pulse Resp BP Pulse Ox 09/12/18 21:30 98.3 F 77 16 124/79 99 09/12/18 21:17 124/87 09/12/18 20:15 70 18 131/94 95 09/12/18 20:00 69 16 131/82 96 09/12/18 19:50 66 144/92 99 09/12/18 19:31 62 16 166/94 100 09/12/18 18:30 100.1 F H 67 16 151/89 99 Intake and Output 09/12/18 09/12/18 09/12/18 06:59 14:59 22:59 Other: # Voids 1 Weight 83.915 kg HEart: RRR Lungs: CTAB Abdomen: soft, nontender, Incision is clean, dry and intact Extremeties: neg macho's, no clonus, 3+/4 DTR. Results Result Diagrams: 09/12/18 18:45 09/12/18 18:45 Abnormal Lab Results - Last 24 Hours (Table) 09/12/18 09/12/18 09/12/18 Range/Units 18:45 18:45 20:33 Plt Count 507 H (150-450) k/uL Chloride 108 H (98-107) mmol/L Uric Acid 7.7 H (3.7-7.4) mg/dL Urine Protein Trace H (Negative) Urine Blood Large H (Negative) Ur Leukocyte Esterase Moderate H (Negative) Urine RBC 45 H (0-5) /hpf Urine WBC 23 H (0-5) /hpf Urine Mucus Rare H (None) /hpf Assessment and Plan (1) Pre-eclampsia, severe Current Visit: Yes Status: Acute Code(s): O14.10 - SEVERE PRE-ECLAMPSIA, UNSPECIFIED TRIMESTER SNOMED Code(s): 37627907 Plan: 1. ADmit to family 2. magnesium sulfate for at least 24 hours 3. aaron catheter 4. pp care
[2018-09-12 23:30] VITALS: BMI 32.8
[2018-09-12] MEDS: IBUPROFEN 600 MG TAB PO PRN (23:34)
[2018-09-13 06:42] LABS: Basophils # (A) 0.1 k/uL (0-0.2); Basophils % (A) 1 %; Eosinophils # (A) 0.3 k/uL (0-0.7); Eosinophils % (A) 4 %; HCT 38.3 % (34.0-46.0); HGB 12.2 gm/dL (11.4-16.0); Lymphocytes % (A) 26 %; MCH 29.1 pg (25.0-35.0); MCHC 31.9 g/dL (31.0-37.0); MCV 91.5 fL (80.0-100.0); Mean Platelet Volume 5.9; Monocytes # (A) 0.4 k/uL (0-1.0); Monocytes % (A) 5 %; Neutrophils # (A) 4.8 k/uL (1.3-7.7); Neutrophils % (A) 62 %; Platelet Count 474 k/uL (150-450); RBC 4.18 m/uL (3.80-5.40); RDW 12.1 % (11.5-15.5); WBC 7.8 k/uL (3.8-10.6)
[2018-09-13] MEDS ORDERED: MAGNESIUM SULFATE-D5W PMX 1 GM in DEXTROSE/WATER 1 100ML.BAG IVPB ONE (07:11)
[2018-09-13] MEDS ORDERED: MAGNESIUM SULFATE-WATER PMX 20 GM in WATER FOR INJECTION 1 500ML.BAG IV SCH (07:30)
[2018-09-13] MEDS: IBUPROFEN 600 MG TAB PO PRN ×2 (08:12→15:17)
--- NOTE | 2018-09-13 09:08 | P.PNOBGPC ---
Subjective - Subjective Principal diagnosis: S/P RLTCS POD #12; post pre-eclampsia Interval history: Pt seen and examined. She started with some blurred vision again this morning, mag level came back 6.1. I did decrease the mag to 1 gram an hour. After the blurred vision a headache started. WE discussed pre-eclampsia and its symptoms. Her output is very good and blood pressures are very good. Objective - Vital Signs Latest vital signs: Vital Signs Temp Pulse Pulse Resp BP BP Pulse Ox 09/13/18 08:00 97.4 F L 71 16 107/67 09/13/18 05:48 97 F L 83 16 109/65 97 09/13/18 03:40 98.2 F 09/13/18 02:45 75 16 107/58 09/13/18 01:45 71 16 109/57 09/13/18 00:45 96.8 F L 70 16 119/68 98 09/13/18 00:25 67 16 108/70 09/12/18 23:55 97.1 F L 77 16 128/85 99 09/12/18 23:24 64 16 118/78 99 09/12/18 23:21 96.3 F L 61 16 125/82 98 09/12/18 23:15 96.8 F L 61 16 125/82 99 09/12/18 22:45 67 16 117/78 98 09/12/18 22:10 74 16 131/77 98 09/12/18 21:30 98.3 F 77 16 124/79 99 09/12/18 21:17 124/87 09/12/18 20:15 70 18 131/94 95 09/12/18 20:00 69 16 131/82 96 09/12/18 19:50 66 144/92 99 09/12/18 19:31 62 16 166/94 100 09/12/18 18:30 100.1 F H 67 16 151/89 99 Intake and Output 09/12/18 09/13/18 09/13/18 22:59 06:59 14:59 Intake Total 660 Output Total 1400 Balance -740 Intake: Oral 660 Output: Urine 1400 Other: Voiding Method Indwelling Catheter Indwelling Catheter # Voids 1 Weight 83.915 kg 83.9 kg - Exam Lungs: bilateral: normal Chest: Normal S1, Normal S2 Extremities: Present: normal (2+/4 DTR). Absent: edema Abdomen: Present: normal appearance, soft. Absent: distention, tenderness Incision: Present: normal, dry, intact Uterus: Present: normal, firm - Labs Labs: Abnormal Lab Results - Last 24 Hours (Table) 09/12/18 09/12/18 09/12/18 Range/Units 18:45 18:45 20:33 Plt Count 507 H (150-450) k/uL Chloride 108 H (98-107) mmol/L Uric Acid 7.7 H (3.7-7.4) mg/dL Magnesium (1.6-2.3) mg/dL Urine Protein Trace H (Negative) Urine Blood Large H (Negative) Ur Leukocyte Esterase Moderate H (Negative) Urine RBC 45 H (0-5) /hpf Urine WBC 23 H (0-5) /hpf Urine Mucus Rare H (None) /hpf U Random Total Protein (<12) mg/dL 09/12/18 09/12/18 09/13/18 Range/Units 20:33 23:30 06:19 Plt Count 474 H (150-450) k/uL Chloride (98-107) mmol/L Uric Acid (3.7-7.4) mg/dL Magnesium (1.6-2.3) mg/dL Urine Protein (Negative) Urine Blood (Negative) Ur Leukocyte Esterase (Negative) Urine RBC (0-5) /hpf Urine WBC (0-5) /hpf Urine Mucus (None) /hpf U Random Total Protein 32 H 13 H (<12) mg/dL 09/13/18 Range/Units 06:19 Plt Count (150-450) k/uL Chloride (98-107) mmol/L Uric Acid (3.7-7.4) mg/dL Magnesium 6.1 H* (1.6-2.3) mg/dL Urine Protein (Negative) Urine Blood (Negative) Ur Leukocyte Esterase (Negative) Urine RBC (0-5) /hpf Urine WBC (0-5) /hpf Urine Mucus (None) /hpf U Random Total Protein (<12) mg/dL Microbiology - Last 24 Hours (Table) 09/12/18 20:33 Urine Culture - Preliminary Urine,Voided Assessment and Plan (1) Pre-eclampsia, severe Current Visit: Yes Status: Acute Code(s): O14.10 - SEVERE PRE-ECLAMPSIA, UNSPECIFIED TRIMESTER SNOMED Code(s): 91114353 Plan: 1. cont post /post op care 2. cont mag sulfate until 8pm and monitor pressures closely after that 3. cont to check I's and O's
[2018-09-13] MEDS ORDERED: ACETAMINOPHEN TAB 325 MG TAB PO PRN (17:50)
[2018-09-13] MEDS ORDERED: diphenhydrAMINE 50 MG CAP PO STA (21:32)
--- NOTE | 2018-09-14 07:21 | P.DS ---
Providers Date of admission: 09/12/18 22:02 Expected date of discharge: 09/14/18 Attending physician: Maureen Shen Primary care physician: Stated None - Discharge Diagnosis(es) (1) Pre-eclampsia, severe Current Visit: Yes Status: Acute Hospital Course: Patient presented 11 days complaining of a vision changes of a headache, and some increased vaginal bleeding. Upon arrival her blood pressure was 160/100. She was given one dose of Stadol and then put on magnesium sulfate. The magnesium sulfate was continued for 24 hours. About 12 hours and her mag level was 6 and her vision started to get blurry than she did have a headache again. Tylenol doesn't work for this headache and once the magnesium was off a headache and the vision changes stopped. Her blood pressure is now 109-120/60-70. She has no headache or vision changes or right upper quadrant pain. We reviewed the signs and symptoms of preeclampsia again. She will also be taking her blood pressure daily at home. If she has increased blood pressure of over 140/90 or starts to have signs or symptoms of preeclampsia she is to call the office immediately. I also like her to follow-up with Dr. Rolon within the next 1-3 days for blood pressure check. Patient and both understand this plan well. Patient Condition at Discharge: Stable Plan - Discharge Summary New Discharge Prescriptions: No Action Ibuprofen [Motrin Ib] 600 mg PO Q6H PRN PRN Reason: Pain Docusate [Colace] 2 cap PO DAILY Discharge Medication List Docusate [Colace] 2 cap PO DAILY 09/12/18 [History] Ibuprofen [Motrin Ib] 600 mg PO Q6H PRN 09/12/18 [History] Follow up Appointment(s)/Referral(s): None,Stated [Primary Care Provider] - 1-2 days Tim Rolon MD [STAFF PHYSICIAN] - 3 Days Discharge Disposition: HOME SELF-CARE
[2018-09-14 07:42] VITALS: BP 127/78; PULSE 70; RESP 18; TEMP 97.1
== END 2018-09-14 08:07 | disposition home or self-care (01) | DRG 776 ==
LOC: EC 18:28 → 4FBP 22:02
PROVIDERS: ADMIT Obstetrics & Gynecology; ATTEND Obstetrics & Gynecology
DX: O14.15 Severe pre-eclampsia, complicating the puerperium (principal); N93.9 Abnormal uterine and vaginal bleeding, unspecified; Z88.1 Allergy status to other antibiotic agents; Z98.891 History of uterine scar from previous surgery; Z83.3 Family history of diabetes mellitus; Z86.59 Personal history of other mental and behavioral disorders
CPT/HCPCS: 36415; 51702; 70450; 80053; 81001; 82570; 83605; 83615; 83735; 84156; 84550; 85025; 85610; 85730; 87040; 87086; 93005; 96365; 96366; 96375; 99285

== ENCOUNTER → 2018-09-14 | Outpatient (CLI) | payer OTHER ==
[2018-09-14 23:19] VITALS: BP 166/107; PULSE 62; RESP 16; TEMP 97.8; BMI 32.8
== END ==
LOC: FBPOP 22:45 → UNDOADMIN 22:45 → 4FBP 22:45 → UNDODISIN 09-15 00:10 → EDSTATUS 10-29 17:46
PROVIDERS: ATTEND Obstetrics & Gynecology
DX: O14.95 Unspecified pre-eclampsia, complicating the puerperium (principal)
CPT/HCPCS: 99215